=== PATIENT | male | born 1955 | race Caucasian/White ===

== ENCOUNTER 2016-09-26 18:51 | Inpatient (IN) | payer MEDICARE, MEDICAID ==
[~2016-09-26] VITALS: Ht 167.6 cm; Wt 96.2 kg
[~2016-09-26 18:51] MED LIST: ACET-868 PO; AMLO5TAB4 PO; ASPI81TA2 PO; ATOR20TA PO; CALC667C PO; CLON0.5T4 PO; CLOP75TA2 PO; DEXT1CAP3 PO; DOCU-25 PO; FAMO-131 PO; FOLI0.8T23 PO; INSU100V11 SQ; INSU100V7 SQ; ISOS60TA PO; LEVO200T; LISI40TA4 PO; METO25TA3 PO; NITR0.4T SL; OLAN2.5T3 PO; POLY17PO4 PO; ROSU40TA20 PO; SEVE800T PO
[2016-09-26 19:20] LABS: BASOPHILS # (AUTO) 0.1 /CMM (0.0-0.2); DIFF TOTAL % 100 %; EOSINOPHILS # (AUTO) 0.4 /CMM (0.0-0.7); HEMATOCRIT 33 % (39-51); HEMOGLOBIN 11.3 g/dL (13.5-17.5); LYMPHOCYTES # (AUTO) 2.4 /CMM (0.8-4.8); LYMPHOCYTES % (AUTO) 29.4 % (20.0-44.0); MEAN CORPUSCULAR HEMOGLOBIN 36 PG (26.0-33.0); MEAN CORPUSCULAR HGB CONC 34 g/dl (31.0-36.0); MEAN CORPUSCULAR VOLUME 105 fL (80-96); MONOCYTES # (AUTO) 0.8 /CMM (0.1-1.30); MONOCYTES % (AUTO) 9.9 % (2.0-12.0); NEUTROPHILS # (AUTO) 4.6 /CMM (1.8-8.9); NEUTROPHILS % (AUTO) 54.7 % (43.0-81.0); PLATELET COUNT (AUTO) 208 /CMM (150-450); RED BLOOD CELL COUNT(AUTO) 3.18 MIL/uL (4.5-6.0); WHITE BLOOD COUNT (AUTO) 8.3 K/uL (4.3-11.0)
[2016-09-26 19:34] LABS: CALCIUM, SERUM 10.3 mg/dL (8.5-10.1); POTASSIUM 4.5 mmol/L (3.5-5.1)
[2016-09-26 19:38] LABS: CREATININE 8.3 mg/dL (0.6-1.3); INR 1.02 (0.87-1.13); PROTHROMBIN TIME 10.7 SECS (9.5-12.7)
[2016-09-26 19:43] LABS: TROPONIN I 0.023 ng/mL (0.00-0.056)
[2016-09-26] MEDS ORDERED: ASPIRIN 81 MG TAB.CHEW PO ONE (20:00)
[2016-09-26] MEDS ORDERED: NITROGLYCERIN PACKET 1 GM PACKET TOP ONE (20:00)
[2016-09-26] MEDS ORDERED: ASPIRIN 81 MG TAB.CHEW ONE (20:10)
[2016-09-26] MEDS ORDERED: NITROGLYCERIN PACKET 1 GM PACKET ONE (20:10)
[2016-09-26 20:40] VITALS: BP 140/61
[2016-09-26] MEDS ORDERED: ACETAMINOPHEN 325 MG TABLET PO PRN (21:30)
[2016-09-26] MEDS ORDERED: clonazePAM 0.5 MG TABLET PO PRN (21:30)
[2016-09-26] MEDS ORDERED: NITROGLYCERIN 0.4 MG/TAB BOTTLE SL PRN (21:30)
[2016-09-26] MEDS ORDERED: MAGNESIUM HYDROXIDE 30 ML UDC PO PRN (22:00)
[2016-09-26] MEDS ORDERED: DEXTROSE 50%-WATER 50 ML DISP.SYRIN IV PRN (22:00)
[2016-09-26] MEDS ORDERED: HYDROCODONE/APAP 5/325MG 1 EACH TABLET PO PRN (22:00)
[2016-09-26] MEDS ORDERED: MAG HYDROX/AL HYDROX/SIMETH 30 ML UDC PO PRN (22:00)
[2016-09-26] MEDS ORDERED: ONDANSETRON HCL/PF 4 MG/2 ML VIAL IVP PRN (22:00)
[2016-09-26] MEDS ORDERED: Z GUARD REMEDY 2 OZ OINT TP PRN (22:00)
[2016-09-26] MEDS: BLOOD SUGAR DIAGNOSTIC 1 EACH STRIP IN SCH (22:09)
[2016-09-26] MEDS: INSULIN REGULAR, HUMAN 100 UNIT/ML 3 ML VIAL SQ PRN (22:11)
[2016-09-27] VITALS (9 sets, daily range): BP systolic 100–127; BP diastolic 54–72
[2016-09-27] MEDS: BLOOD SUGAR DIAGNOSTIC 1 EACH STRIP IN SCH ×4 (06:28→21:28)
[2016-09-27 06:53] LABS: BASOPHILS # (AUTO) 0.1 /CMM (0.0-0.2); BASOPHILS % (AUTO) 1.5 % (0.0-2.0); DIFF TOTAL % 100 %; EOSINOPHILS # (AUTO) 0.4 /CMM (0.0-0.7); EOSINOPHILS % (AUTO) 5.1 % (0.0-6.0); HEMATOCRIT 30 % (39-51); LYMPHOCYTES # (AUTO) 2.1 /CMM (0.8-4.8); LYMPHOCYTES % (AUTO) 30.7 % (20.0-44.0); MEAN CORPUSCULAR HEMOGLOBIN 35 PG (26.0-33.0); MEAN CORPUSCULAR HGB CONC 34 g/dl (31.0-36.0); MEAN CORPUSCULAR VOLUME 105 fL (80-96); MONOCYTES # (AUTO) 0.9 /CMM (0.1-1.30); MONOCYTES % (AUTO) 12.3 % (2.0-12.0); NEUTROPHILS # (AUTO) 3.5 /CMM (1.8-8.9); NEUTROPHILS % (AUTO) 50.4 % (43.0-81.0); PLATELET COUNT (AUTO) 172 /CMM (150-450); RED BLOOD CELL COUNT(AUTO) 2.83 MIL/uL (4.5-6.0); WHITE BLOOD COUNT (AUTO) 6.9 K/uL (4.3-11.0)
[2016-09-27 07:00] LABS: ALBUMIN 3.3 g/dL (3.4-5.0); BILIRUBIN,TOTAL 0.4 mg/dL (0.2-1.0); CALCIUM, SERUM 10.1 mg/dL (8.5-10.1); PHOSPHORUS 2.7 mg/dL (2.5-4.9); POTASSIUM 4.4 mmol/L (3.5-5.1); TOTAL PROTEIN, SERUM 6.9 g/dL (6.4-8.2)
[2016-09-27 07:03] LABS: CREATININE 8.9 mg/dL (0.6-1.3)
[2016-09-27] MEDS: POLYETHYLENE GLYCOL 3350 17 GM POWD.PACK PO SCH (08:54)
[2016-09-27] MEDS: LISINOPRIL (20MG) 20 MG TABLET PO SCH (08:55)
[2016-09-27] MEDS: METOPROLOL SUCCINATE 25 MG TAB.SR.24H PO SCH (08:56)
[2016-09-27] MEDS: SEVELAMER CARBONATE 800 MG TABLET PO SCH ×3 (08:56→17:00)
[2016-09-27] MEDS: AMLODIPINE BESYLATE 5 MG TABLET PO SCH ×2 (08:57→17:00)
[2016-09-27] MEDS: DOCUSATE SODIUM 100 MG CAPSULE PO SCH ×2 (08:57→21:28)
[2016-09-27] MEDS: VIT B CMPLX 3/FA/VIT C/BIOTIN 1 TAB TABLET PO SCH (08:57)
[2016-09-27] MEDS: ISOSORBIDE MONONITRATE (30MG) 30 MG TAB.SR.24H PO SCH (08:57)
[2016-09-27] MEDS: ASPIRIN 81 MG TAB.CHEW PO SCH (08:57)
[2016-09-27] MEDS: CLOPIDOGREL BISULFATE 75 MG TABLET PO SCH (08:57)
[2016-09-27] MEDS: FAMOTIDINE (20 MG) 20 MG TABLET PO SCH (08:58)
[2016-09-27] MEDS: LEVOTHYROXINE SODIUM 100 MCG TABLET PO SCH (08:59)
[2016-09-27] MEDS ORDERED: DEXTROMETHORPHAN HBR PO SCH (09:00)
[2016-09-27] MEDS ORDERED: QUINIDINE PO SCH (09:00)
[2016-09-27] MEDS ORDERED: INSULIN ASPART 3 UNIT SQ SCH (09:00)
[2016-09-27] MEDS: OLANZAPINE 2.5 MG TABLET PO SCH ×2 (10:34→16:59)
[2016-09-27] MEDS ORDERED: MINERAL OIL/PETROLATUM,WHITE 120 GM JAR TP PRN (12:00)
[2016-09-27] MEDS: CALCIUM ACETATE 667 MG TABLET PO SCH ×2 (12:27→16:59)
[2016-09-27] MEDS: INSULIN DETEMIR 100 UNIT/ML CARTRIDGE SQ SCH (12:32)
[2016-09-27] MEDS: INSULIN REGULAR, HUMAN 100 UNIT/ML 3 ML VIAL SQ PRN (12:33)
[2016-09-27] MEDS ORDERED: IV NS 0.9% 1,000 ML ONE (14:11)
[2016-09-27] MEDS: NEOMY SULF/BACITRAC ZN/POLY 15 GM TUBE TP SCH (14:26)
[2016-09-27] MEDS ORDERED: ATORVASTATIN 10 MG TABLET PO SCH (22:00)
[2016-09-28] MEDS: BLOOD SUGAR DIAGNOSTIC 1 EACH STRIP IN SCH (06:19)
[2016-09-28 08:00] VITALS: BP 138/73
[2016-09-28] MEDS: LEVOTHYROXINE SODIUM 100 MCG TABLET PO SCH (08:53)
[2016-09-28] MEDS: DOCUSATE SODIUM 100 MG CAPSULE PO SCH (08:53)
[2016-09-28] MEDS: ASPIRIN 81 MG TAB.CHEW PO SCH (08:53)
[2016-09-28] MEDS: POLYETHYLENE GLYCOL 3350 17 GM POWD.PACK PO SCH (08:53)
[2016-09-28] MEDS: OLANZAPINE 2.5 MG TABLET PO SCH (08:53)
[2016-09-28] MEDS: CALCIUM ACETATE 667 MG TABLET PO SCH (08:53)
[2016-09-28] MEDS: SEVELAMER CARBONATE 800 MG TABLET PO SCH (08:53)
[2016-09-28] MEDS: VIT B CMPLX 3/FA/VIT C/BIOTIN 1 TAB TABLET PO SCH (08:53)
[2016-09-28] MEDS: FAMOTIDINE (20 MG) 20 MG TABLET PO SCH (08:54)
[2016-09-28] MEDS: AMLODIPINE BESYLATE 5 MG TABLET PO SCH (08:54)
[2016-09-28] MEDS: LISINOPRIL (20MG) 20 MG TABLET PO SCH (08:54)
[2016-09-28] MEDS: CLOPIDOGREL BISULFATE 75 MG TABLET PO SCH (08:54)
[2016-09-28 08:55] VITALS: BP 142/76
[2016-09-28] MEDS: ISOSORBIDE MONONITRATE (30MG) 30 MG TAB.SR.24H PO SCH (08:55)
[2016-09-28] MEDS: METOPROLOL SUCCINATE 25 MG TAB.SR.24H PO SCH (08:55)
[2016-09-28] MEDS: NEOMY SULF/BACITRAC ZN/POLY 15 GM TUBE TP SCH (08:55)
[2016-09-28] MEDS: INSULIN DETEMIR 100 UNIT/ML CARTRIDGE SQ SCH (09:03)
== END 2016-09-28 11:25 | DRG 302 ==
LOC: ER 18:57 → TELE 20:23 → MED 09-27 14:34
PROVIDERS: ADMIT Contractor; ATTEND Contractor
PROC: 5A1D00Z (ICD-10-PCS; principal; 2016-09-27)
DX: I25.10 Atherosclerotic heart disease of native coronary artery without angina pectoris (principal); N18.6 End stage renal disease; I12.0 Hypertensive chronic kidney disease with stage 5 chronic kidney disease or end stage renal disease; E11.22 Type 2 diabetes mellitus with diabetic chronic kidney disease; Z99.2 Dependence on renal dialysis; Z95.1 Presence of aortocoronary bypass graft; D50.9 Iron deficiency anemia, unspecified; D63.1 Anemia in chronic kidney disease; E03.9 Hypothyroidism, unspecified; E78.5 Hyperlipidemia, unspecified; F03.90 Unspecified dementia, unspecified severity, without behavioral disturbance, psychotic disturbance, mood disturbance, and anxiety; I25.2 Old myocardial infarction; Z79.4 Long term (current) use of insulin; Z95.0 Presence of cardiac pacemaker; M79.89 Other specified soft tissue disorders
CPT/HCPCS: 36415; 71010-TC; 80048-TC; 80053-TC; 80061-TC; 82746; 82962-TC; 83735-TC; 84100-TC; 84443-TC; 84484-TC; 85025-TC; 85730-TC; 87081-TC; 90935-TC; 93971-TC; A4606; A6402; A6403; J1815; J7030; Z7610

== ENCOUNTER 2017-08-04 13:02 | Emergency (ER) | payer MEDICARE, OTHER ==
[~2017-08-04] VITALS: Ht 167.6 cm; Wt 82.1 kg
[~2017-08-04 13:02] MED LIST changes: +ASPI-1238 PO; -ASPI81TA2 PO; +CLOP75TA15 PO; -CLOP75TA2 PO; +DOCU-141 PO; -DOCU-25 PO; -SEVE800T PO; +SEVE800T7 PO
[2017-08-04] MEDS ORDERED: EPINEPHRINE (1:10,000) SYRINGE 1 MG/10 ML DISP.SYRIN IVP ONE (13:04)
[2017-08-04] MEDS ORDERED: CALCIUM CHLORIDE 1,000 MG/10 ML DISP.SYRIN IV ONE (13:04)
--- NOTE | 2017-08-04 13:30 | NUR ---
Code BLUE called; cardiopulomonary compression initiated at bedside
--- NOTE | 2017-08-04 13:31 | NUR ---
Dr. Shaver at bedside
--- NOTE | 2017-08-04 13:36 | NUR ---
DR Carmel REZA AT BEDSIDE. PT INTUBATED W/ ET # 7.5 24 TO THE LIP, PLACEMENT VERIFIED.
[2017-08-04] MEDS ORDERED: MIDAZOLAM 50 MG/10 ML VIAL ONE (13:43)
--- NOTE | 2017-08-04 13:45 | NUR ---
PT IS BUCKING ON THE TUBE. VERSED 2MG GIVEN PER ERMD VERBAL ORDER.
--- NOTE | 2017-08-04 13:45 | NUR ---
BLOOD SUGAR 195. ERMD AWARE.
--- NOTE | 2017-08-04 13:50 | NUR ---
PT IS STILL BUCKING THE TUBE. VERBAL ORDER FOR VERSED 3MG IVP GIVEN.
[2017-08-04] MEDS ORDERED: PROPOFOL 100 ML ONE (13:51)
--- NOTE | 2017-08-04 13:59 | NUR ---
[facility] CALLED [phone]. EKG/FACESHEET FAXED [phone]
--- NOTE | 2017-08-04 13:59 | NUR ---
CARDIO PAGED [facility] [phone]
[2017-08-04 14:09] LABS: ABG BASE EXCESS 0.2 mmol/L; ABG OXYGEN SATURATION 99.5 % (92.0-98.5); ABG PCO2 35.4 mmHg (35.0-45.0); ABG PH 7.447 (7.350-7.450); ABG PO2 369.8 mmHg (75.0-100.0); AaDO2 307.8 mmHg; COHb 1.2 % (0.5-1.5); MetHb 0.3 % (0.0-1.5); SITE, ABG Right Radial
--- NOTE | 2017-08-04 14:10 | NUR ---
RADIOLOGY AT BEDSIDE FOR CHEST XRAY.
[2017-08-04 14:15] LABS: BASOPHILS # (AUTO) 0.4 /CMM (0.0-0.2); BASOPHILS % (AUTO) 2.3 % (0.0-2.0); EOSINOPHILS % (AUTO) 0.1 % (0.0-6.0); HEMATOCRIT 33 % (39-51); HEMOGLOBIN 11.3 g/dL (13.5-17.5); LYMPHOCYTES # (AUTO) 1.3 /CMM (0.8-4.8); LYMPHOCYTES % (AUTO) 7.3 % (20.0-44.0); MEAN CORPUSCULAR HEMOGLOBIN 35 PG (26.0-33.0); MEAN CORPUSCULAR HGB CONC 34 g/dl (31.0-36.0); MEAN CORPUSCULAR VOLUME 103 fL (80-96); MONOCYTES # (AUTO) 1.3 /CMM (0.1-1.30); MONOCYTES % (AUTO) 7.1 % (2.0-12.0); NEUTROPHILS # (AUTO) 15.2 /CMM (1.8-8.9); NEUTROPHILS % (AUTO) 83.2 % (43.0-81.0); PLATELET COUNT (AUTO) 175 /CMM (150-450); RDW COEFFICIENT OF VARIATION 14.8 (11.5-15.0); RED BLOOD CELL COUNT(AUTO) 3.23 MIL/uL (4.5-6.0); WHITE BLOOD COUNT (AUTO) 18.2 K/uL (4.3-11.0)
[2017-08-04] MEDS ORDERED: HEPARIN SODIUM, PORCINE 5000 UNITS/1 ML VIAL ONE (14:21)
[2017-08-04 14:26] LABS: CALCIUM, SERUM 10.6 mg/dL (8.5-10.1); CREATININE 5.5 mg/dL (0.6-1.3); POTASSIUM 3.5 mmol/L (3.5-5.1)
[2017-08-04 14:28] LABS: INR 1.16 (0.87-1.13); PROTHROMBIN TIME 12.1 SECS (9.5-12.7)
[2017-08-04] MEDS ORDERED: ASPIRIN 300 MG/SUPP.RECT RC ONE (14:30)
[2017-08-04] MEDS ORDERED: HEPARIN INFUSION/D5W 500 ML IV ONE ×2 (14:30→14:51)
[2017-08-04] MEDS ORDERED: HEPARIN SODIUM, PORCINE 5000 UNITS/1 ML VIAL IV ONE (14:30)
--- NOTE | 2017-08-04 14:30 | NUR ---
VERBAL ORDER FOR HEPARIN 5,000 UNITS BOLUS GIVEN IVP PER DR GIBBS VERBAL ORDER. DOSE WITNESSED BY CHARGE NURSE
[2017-08-04 14:37] LABS: ALBUMIN 3.8 g/dL (3.4-5.0); BILIRUBIN,DIRECT 0.2 mg/dL (0.0-0.2); BILIRUBIN,TOTAL 1.3 mg/dL (0.2-1.0); TOTAL PROTEIN, SERUM 7.3 g/dL (6.4-8.2)
[2017-08-04 14:42] LABS: TROPONIN I 0.065 ng/mL (0.00-0.056)
[2017-08-04 14:47] VITALS: BP 105/63
--- NOTE | 2017-08-04 14:55 | NUR ---
HEPARIN DRIP INFUSING AT 12UNITS/KG/HR ON ROUTE TO [facility]. TRANSFERED VIA ACLS PROTOCOL.
--- NOTE | 2017-08-04 15:19 | NUR ---
REPORT GIVEN AT [facility].
== END 2017-08-04 15:30 | disposition short-term general hospital (02) ==
LOC: ER 13:03
DX: I46.9 Cardiac arrest, cause unspecified (principal); I21.29 ST elevation (STEMI) myocardial infarction involving other sites; I12.0 Hypertensive chronic kidney disease with stage 5 chronic kidney disease or end stage renal disease; E11.22 Type 2 diabetes mellitus with diabetic chronic kidney disease; N18.6 End stage renal disease; E03.9 Hypothyroidism, unspecified; F29 Unspecified psychosis not due to a substance or known physiological condition; Z95.1 Presence of aortocoronary bypass graft; Z88.8 Allergy status to other drugs, medicaments and biological substances; Z79.4 Long term (current) use of insulin; Z79.82 Long term (current) use of aspirin
CPT/HCPCS: 31500; 36415; 36600; 71045; 80048; 80076; 84484; 85025; 85730; 92950; 93005; 96365; 99291; A4606; J0171; J1644 ×2; J2250; J3490 ×2; Z7610

== ENCOUNTER 2017-08-25 12:56 | Inpatient (IN) | payer MEDICARE, OTHER ==
[2017-08-25] VITALS (17 sets, daily range): BP systolic 79–117; BP diastolic 39–77
[~2017-08-25] VITALS: Ht 172.7 cm; Wt 77.6 kg
[~2017-08-25 12:56] MED LIST changes: +ACET-868 GT; -ACET-868 PO; +ASPI-1238 GT; -ASPI-1238 PO; +ATOR20TA GT; -ATOR20TA PO; +CLOP75TA15 GT; -CLOP75TA15 PO; +FOLI0.8T23 GT; -FOLI0.8T23 PO; +ISOS60TA GT; -ISOS60TA PO; +OLAN2.5T3 GT; -OLAN2.5T3 PO
[2017-08-25 13:20] LABS: BASOPHILS # (AUTO) 0.6 /CMM (0.0-0.2); BASOPHILS % (AUTO) 3.9 % (0.0-2.0); EOSINOPHILS # (AUTO) 0.1 /CMM (0.0-0.7); EOSINOPHILS % (AUTO) 0.8 % (0.0-6.0); HEMATOCRIT 33 % (39-51); HEMOGLOBIN 11.1 g/dL (13.5-17.5); LYMPHOCYTES % (AUTO) 12.5 % (20.0-44.0); MEAN CORPUSCULAR HEMOGLOBIN 34 PG (26.0-33.0); MEAN CORPUSCULAR HGB CONC 34 g/dl (31.0-36.0); MEAN CORPUSCULAR VOLUME 100 fL (80-96); MONOCYTES # (AUTO) 1.9 /CMM (0.1-1.30); MONOCYTES % (AUTO) 11.6 % (2.0-12.0); NEUTROPHILS # (AUTO) 11.4 /CMM (1.8-8.9); NEUTROPHILS % (AUTO) 71.2 % (43.0-81.0); PLATELET COUNT (AUTO) 345 /CMM (150-450); RDW COEFFICIENT OF VARIATION 15.3 (11.5-15.0); RED BLOOD CELL COUNT(AUTO) 3.29 MIL/uL (4.5-6.0)
[2017-08-25] MEDS ORDERED: IV NS 0.9% 1,000 ML BAG IV ONE (13:30)
[2017-08-25 13:35] LABS: INR 1.13 (0.85-1.15)
[2017-08-25 13:40] LABS: ALBUMIN 4.5 g/dL (3.4-5.0); BILIRUBIN,DIRECT 0.2 mg/dL (0.0-0.2); BILIRUBIN,TOTAL 0.6 mg/dL (0.2-1.0); CALCIUM, SERUM 10.6 mg/dL (8.5-10.1); POTASSIUM 4.8 mmol/L (3.5-5.1); TOTAL PROTEIN, SERUM 8.8 g/dL (6.4-8.2); TROPONIN I 0.104 ng/mL (0.00-0.056)
[2017-08-25 13:41] LABS: CREATININE 10.2 mg/dL (0.6-1.3)
--- NOTE | 2017-08-25 13:48 | NUR ---
CARDIOLOGY ON-CALL PAGED
--- NOTE | 2017-08-25 13:51 | NUR ---
PANEL ON-CALL PAGED
[2017-08-25] MEDS ORDERED: VANCOMYCIN 1 GM in IV D5W 250 ML IV ONE (14:00)
[2017-08-25] MEDS ORDERED: PIPERACILLIN /TAZOBACTAM 3.375 G in IV D5W 50 ML IV ONE (14:00)
--- NOTE | 2017-08-25 14:09 | NUR ---
DR MCKEON PAGED TO FIND OUT IF IT'S OK TO PUT A PICC LINE
[2017-08-25] MEDS: IV NS 0.9% 1,000 ML IV PRN (14:43)
[2017-08-25 14:45] LABS: MAGNESIUM 2.7 mg/dL (1.8-2.4); PHOSPHORUS 7.4 mg/dL (2.5-4.9)
--- NOTE | 2017-08-25 14:56 | NUR ---
CALL BACK FROM DR Marisa MCKEON, GAVE THE OK TO PUT A PICC LINE TO R ARM,OPPOSITE THE DIALYSIS ACCESS SITE
[2017-08-25 15:21] LABS: THYROID STIMULATING HORMONE 4.385 uIU/mL (0.358-3.74)
--- NOTE | 2017-08-25 15:31 | NUR ---
BED 254
--- NOTE | 2017-08-25 15:36 | NUR ---
DR. ANGELICA BERNAL.
[2017-08-25] MEDS ORDERED: BLOO-668 IN (15:53)
[2017-08-25] MEDS ORDERED: HYDR-552 GT (15:53)
[2017-08-25] MEDS ORDERED: INSU100V27 SQ (15:53)
[2017-08-25] MEDS ORDERED: DONE5TAB7 GT (15:53)
[2017-08-25] MEDS ORDERED: METO25TA3 GT (15:53)
[2017-08-25] MEDS ORDERED: BISA10SU8 RC (15:53)
[2017-08-25] MEDS ORDERED: ISOS10TA2 GT (15:53)
[2017-08-25] MEDS ORDERED: CYAN10006 IM (15:53)
[2017-08-25] MEDS ORDERED: LEVO500T75 GT (15:53)
[2017-08-25] MEDS ORDERED: EPOE3000 SQ (15:53)
[2017-08-25] MEDS ORDERED: METO25TA6 GT (15:53)
[2017-08-25] MEDS ORDERED: NUT.237L67 GT (15:53)
[2017-08-25] MEDS ORDERED: LEVO75TA7 GT (15:53)
[2017-08-25] MEDS ORDERED: NA P133E RC (15:53)
[2017-08-25] MEDS ORDERED: SEVE0.8P GT (15:53)
[2017-08-25] MEDS ORDERED: CHOL100044 GT (15:53)
[2017-08-25] MEDS ORDERED: ACET-2605 GT (15:53)
[2017-08-25] MEDS ORDERED: MAGN400O6 GT (15:53)
[2017-08-25] MEDS ORDERED: HYDR-4076 GT (15:53)
[2017-08-25] MEDS ORDERED: FOLI1TAB16 GT (15:53)
--- NOTE | 2017-08-25 16:40 | NUR ---
RN NOTES ADMITTED 61 Y/O M FROM ER TRANSPORTED VIA STRETCHER ACCOMPANIED BY RN AND TECH. PT APPEARS DROWSY, UNABLE TO COMPLETE INTERVIEW PROCESS. ON O2@2LP VIA NC, NAD. BODY CHECK DONE, NOTED SACRAL WOUND, AND SCROTAL REDNESS. PHOTO TAKEN AND FILED ON CHART. WOUND CONSULT ORDERED, KCI MATTRESS ORDERED. KEPT COMFORTABLE. WILL CLOSELY MONITOR.
[2017-08-25] MEDS ORDERED: CHOLECALCIFEROL 1,000 UNIT TABLET (VIT D3) GT SCH (18:30)
[2017-08-25] MEDS ORDERED: DEXTROSE 50%-WATER 50 ML DISP.SYRIN IV PRN (18:30)
--- NOTE | 2017-08-25 19:30 | NUR ---
ICU/RN RECEIVED PT AWAKE ORIENTED TO NAME,SPEECH AT TIMES GARBLED,AT TIMES CLEAR.. PT EASILY DOZES TO SLEEP.DOES NOT FOLLPW COMMANDS.
[2017-08-25] MEDS: RENAL NOVASOURCE 1,000 ML BOTTLE GT PRN (19:34)
[2017-08-25] MEDS ORDERED: FEE PK DOSING 1 MIN EA MC ONE (20:34)
[2017-08-25] MEDS: HYDROGEL DRESSING 90 GM TUBE TP SCH (21:35)
[2017-08-25] MEDS: PIPERACILLIN /TAZOBACTAM 2.25 G in IV D5W 50 ML IV SCH (21:35)
[2017-08-25] MEDS: Z GUARD REMEDY 2 OZ OINT TP SCH (21:35)
[2017-08-25] MEDS: IV NS 0.9% 250 ML BAG IV PRN (21:47)
[2017-08-25] MEDS: DONEPEZIL 5 MG TABLET GT SCH (22:06)
[2017-08-26] VITALS (59 sets, daily range): BP systolic 52–139; BP diastolic 20–102
[2017-08-26] MEDS: BLOOD SUGAR DIAGNOSTIC 1 EACH STRIP IN SCH ×5 (00:39→23:45)
[2017-08-26] MEDS: INSULIN REGULAR, HUMAN 100 UNIT/ML 3 ML VIAL SQ PRN ×5 (00:42→23:46)
[2017-08-26 05:24] LABS: BASOPHILS # (AUTO) 0.1 /CMM (0.0-0.2); BASOPHILS % (AUTO) 0.7 % (0.0-2.0); EOSINOPHILS # (AUTO) 0.1 /CMM (0.0-0.7); EOSINOPHILS % (AUTO) 1.3 % (0.0-6.0); HEMATOCRIT 32 % (39-51); HEMOGLOBIN 10.7 g/dL (13.5-17.5); LYMPHOCYTES # (AUTO) 1.6 /CMM (0.8-4.8); LYMPHOCYTES % (AUTO) 13.2 % (20.0-44.0); MEAN CORPUSCULAR HEMOGLOBIN 35 PG (26.0-33.0); MEAN CORPUSCULAR HGB CONC 34 g/dl (31.0-36.0); MEAN CORPUSCULAR VOLUME 103 fL (80-96); MONOCYTES # (AUTO) 1.1 /CMM (0.1-1.30); MONOCYTES % (AUTO) 9.2 % (2.0-12.0); NEUTROPHILS # (AUTO) 8.9 /CMM (1.8-8.9); NEUTROPHILS % (AUTO) 75.6 % (43.0-81.0); PLATELET COUNT (AUTO) 293 /CMM (150-450); RDW COEFFICIENT OF VARIATION 16.5 (11.5-15.0); RED BLOOD CELL COUNT(AUTO) 3.07 MIL/uL (4.5-6.0); WHITE BLOOD COUNT (AUTO) 11.7 K/uL (4.3-11.0)
[2017-08-26 05:39] LABS: CALCIUM, SERUM 10.6 mg/dL (8.5-10.1); POTASSIUM 5.2 mmol/L (3.5-5.1)
[2017-08-26] MEDS: PIPERACILLIN /TAZOBACTAM 2.25 G in IV D5W 50 ML IV SCH ×3 (05:40→21:29)
[2017-08-26 05:41] LABS: CREATININE 10.7 mg/dL (0.6-1.3)
--- NOTE | 2017-08-26 06:35 | NUR ---
ICU/RN PT AWAKE ALERT ORIENTED TO NAME AND PLACE,RE-ORIENTED TO TIME AND SURROUNDINGS.SPEECH CLEAR AT TIMES,GARBLED AT TIME.VS STABLE PT W/ CHEST BINDER SINCE ADMISSION.TOLLERATING TF WELL.
--- NOTE | 2017-08-26 07:05 | NUR ---
RN INITIAL NOTES RECEIVED PT AWAKE, A/OX1. ON 02 AT 2LPM VIA NC. NO RESPIRATORY DISTRESS NOTED. NO SOB NOTED. NO SIGNS OF PAIN NOTED. HOB ELEVATED. HERMAN PICC IN PLACE. JUANITO AV FISTULA NOTED. BRUIT AND THRILL PRESENT. GT IN PLACE. TOLERATING GTF WELL. BLE ELEVATED. PT COMFORTABLE. WILL CONTINUE TO MONITOR.
--- NOTE | 2017-08-26 07:40 | NUR ---
RN NOTES SEEN AND EXAMINED BY DR. CANTOR. AWARE OF CURRENT LAB VALUES: WBC 11.7, HGB 10.7, HCT 32, PLATELET 293, BUN 160, CREA 10.7. ALSO AWARE OF CXR RESULT. WILL OBTAIN RECORDS FROM [facility].
[2017-08-26] MEDS: LEVOTHYROXINE SODIUM 75 MCG TABLET GT SCH (08:25)
[2017-08-26] MEDS: HYDROGEL DRESSING 90 GM TUBE TP SCH ×2 (08:25→21:31)
[2017-08-26] MEDS: Z GUARD REMEDY 2 OZ OINT TP SCH ×2 (08:25→21:31)
[2017-08-26] MEDS: CLOPIDOGREL BISULFATE 75 MG TABLET GT SCH (08:25)
[2017-08-26] MEDS: SEVELAMER CARBONATE 0.8 GM POWD.PACK GT SCH ×3 (08:25→17:21)
[2017-08-26] MEDS: FOLIC ACID 1 MG TABLET GT SCH (08:25)
[2017-08-26] MEDS: ASPIRIN 81 MG TAB.CHEW GT SCH (08:25)
--- NOTE | 2017-08-26 09:45 | NUR ---
RN NOTES DIALYSIS STARTED. VITAL SIGNS WNL. NO RESPIRATORY DISTRESS NOTED. NO SIGNS OF PAIN NOTED. WILL MONITOR.
--- NOTE | 2017-08-26 10:10 | NUR ---
RN NOTES CALLED ERICA CALHOUN. PT HAVING HD AND SBP ON LOW 50-60S. ALBUMIN GIVEN BY HD NURSE. ORDERED LEVOPHED. NOTED AND CARRIED OUT. WILL CLOSELY MONITOR.
[2017-08-26] MEDS ORDERED: ALBUMIN 25% 25 GM in PREMIX 1 EA IV PRN (10:30)
--- NOTE | 2017-08-26 11:00 | NUR ---
RN NOTES SEEN AND EXAMINED BY DR. BERTHA ZUNIGA. HD ONGOING. LEVO STARTED. WILL TITRATE ACCORDINGLY. SBP CLOSELY MONITORED, ON 60S. WILL CONTINUE TO MONITOR
[2017-08-26] MEDS: NOREPINEPHRINE 16 MG in IV D5W 500 ML IV PRN (11:18)
--- NOTE | 2017-08-26 11:45 | NUR ---
RN NOTES HD DONE. REMOVED 1.3L. PT GIVEN ALBUMIN DURING HD. PT ON LEVO, WILL TITRATE ACCORDINGLY. LATEST SBP 120S. WILL CLOSELY MONITOR.
[2017-08-26] MEDS: VANCOMYCIN 500 MG in IV D5W 100 ML IV PRN (15:33)
[2017-08-26] MEDS: IV NS 0.9% 250 ML BAG IV PRN (16:29)
[2017-08-26] MEDS: RENAL NOVASOURCE 1,000 ML BOTTLE GT PRN (16:29)
--- NOTE | 2017-08-26 18:55 | NUR ---
RN CLOSING NOTES NO SIGNIFICANT CHANGE NOTED. PT REMAINS ON 02 AT 2LPM VIA NC. NO RESPIRATORY DISTRESS NOTED. GT IN PLACE. TOLERATING GTF WELL. HERMAN PICC IN PLACE. KEPT CLEAN AND DRY. REPOSITIONED Q2. TX PROVIDED ORDERED. BLE ELEVATED. WILL ENDORSE FOR CONTINUITY OF CARE.
[2017-08-26] MEDS: ATORVASTATIN 10 MG TABLET GT SCH (21:31)
[2017-08-26] MEDS: DONEPEZIL 5 MG TABLET GT SCH (21:32)
[2017-08-26] MEDS: VITAMIN B COMP W-C 1 TAB TABLET GT SCH (21:32)
--- NOTE | 2017-08-26 23:20 | NUR ---
ICU/ASSISTANT PROFESSOR OF SPANISH BLOOD SUGAR WAS 186, THIS WAS COVERED WITH 3 UNITS REGULAR INSULIN. WILL CONTINUE TO MONITOR PT'S SUGAR PER MD ORDERS AND PROTOCOL. PT WAS TURNED AND REPOSITIONED FOR COMFORT AND CARE. PT ON OCCASION YELLS OUT WHEN ASKED ABOUT THIS PT STATES " I DON'T KNOW WHY."
[2017-08-27] VITALS (60 sets, daily range): BP systolic 70–204; BP diastolic 49–145
--- NOTE | 2017-08-27 02:10 | NUR ---
ICU/SUPERVISOR PRESSING DEPARTMENT PT WAS GIVEN AM CARE, ALONG WITH ORAL CARE. PT TOLERATED THIS WELL. PT REMAINS ON 3 LITERS VIA N/C WITH SATURATION AT 96-98%. PT WAS THEN TURNED AND REPOSITIONED FOR COMFORT AND CARE. NO ACUTE DISTRESS SEEN AT THIS TIME.
[2017-08-27] MEDS: PIPERACILLIN /TAZOBACTAM 2.25 G in IV D5W 50 ML IV SCH ×3 (04:34→21:11)
--- NOTE | 2017-08-27 04:40 | NUR ---
ICU/PRESSURE TEST OPERATOR AM LABS WERE DRAWN, AWAIT FOR ANY CRITICAL LAB VALUES. PT WAS TURNED AND REPOSITIONED FOR COMFORT AND CARE.
[2017-08-27 05:01] LABS: BASOPHILS # (AUTO) 0.1 /CMM (0.0-0.2); BASOPHILS % (AUTO) 0.8 % (0.0-2.0); EOSINOPHILS # (AUTO) 0.3 /CMM (0.0-0.7); EOSINOPHILS % (AUTO) 2.9 % (0.0-6.0); HEMATOCRIT 31 % (39-51); HEMOGLOBIN 10.4 g/dL (13.5-17.5); LYMPHOCYTES # (AUTO) 1.1 /CMM (0.8-4.8); LYMPHOCYTES % (AUTO) 11.5 % (20.0-44.0); MEAN CORPUSCULAR HEMOGLOBIN 35 PG (26.0-33.0); MEAN CORPUSCULAR HGB CONC 34 g/dl (31.0-36.0); MEAN CORPUSCULAR VOLUME 103 fL (80-96); MONOCYTES # (AUTO) 0.9 /CMM (0.1-1.30); MONOCYTES % (AUTO) 9.6 % (2.0-12.0); NEUTROPHILS # (AUTO) 7.2 /CMM (1.8-8.9); NEUTROPHILS % (AUTO) 75.2 % (43.0-81.0); PLATELET COUNT (AUTO) 215 /CMM (150-450); RDW COEFFICIENT OF VARIATION 16.2 (11.5-15.0); RED BLOOD CELL COUNT(AUTO) 2.97 MIL/uL (4.5-6.0); WHITE BLOOD COUNT (AUTO) 9.6 K/uL (4.3-11.0)
[2017-08-27 05:10] LABS: CALCIUM, SERUM 10.6 mg/dL (8.5-10.1); MAGNESIUM 2.8 mg/dL (1.8-2.4); PHOSPHORUS 5.4 mg/dL (2.5-4.9); POTASSIUM 4.4 mmol/L (3.5-5.1)
[2017-08-27] MEDS: BLOOD SUGAR DIAGNOSTIC 1 EACH STRIP IN SCH ×3 (05:12→18:14)
[2017-08-27] MEDS: INSULIN REGULAR, HUMAN 100 UNIT/ML 3 ML VIAL SQ PRN (05:15)
[2017-08-27 05:19] LABS: CREATININE 8.3 mg/dL (0.6-1.3)
--- NOTE | 2017-08-27 06:10 | NUR ---
ICU/BRACE MAKER BLOOD SUGAR WAS 193, THIS WAS COVERED WITH 3 UNITS REGULAR INSULIN. WILL CONTINUE TO MONITOR PT'S SUGAR PER MD ORDERS AND PROTOCOL. PT WAS TURNED AND REPOSITIONED FOR COMFORT AND CARE. PT IS TOLERATING CURRENT G/TUBE FEEDING, THERE IS NO RESIDUALS.
--- NOTE | 2017-08-27 06:38 | NUR ---
ICU/CORRECTIONS UNIT SUPERVISOR CAME IN TO SEE PT, NO NEW ORDERED WERE RECEIVED AT THIS TIME. PT WILL CONTINUE TO BE MONITOR.
--- NOTE | 2017-08-27 07:05 | NUR ---
RN INITIAL NOTES RECEIVED PT AWAKE, A/OX1, MUMBLE WORDS. ON 02 AT 2LPM VIA NC. NO RESPIRATORY DISTRESS NOTED. NO SOB NOTED. HOB ELEVATED. NO SIGNS OF PAIN NOTED. HOB ELEVATED. HERMAN PICC IN PLACE. JUANITO AV FISTULA NOTED. BRUIT AND THRILL PRESENT. GT IN PLACE. TOLERATING GTF WELL. BLE ELEVATED. PT COMFORTABLE. WILL CONTINUE TO MONITOR.
[2017-08-27] MEDS: SEVELAMER CARBONATE 0.8 GM POWD.PACK GT SCH ×3 (08:05→16:30)
[2017-08-27] MEDS: FOLIC ACID 1 MG TABLET GT SCH (08:05)
[2017-08-27] MEDS: Z GUARD REMEDY 2 OZ OINT TP SCH ×2 (08:05→21:11)
[2017-08-27] MEDS: CLOPIDOGREL BISULFATE 75 MG TABLET GT SCH (08:05)
[2017-08-27] MEDS: ASPIRIN 81 MG TAB.CHEW GT SCH (08:05)
[2017-08-27] MEDS: HYDROGEL DRESSING 90 GM TUBE TP SCH ×2 (08:05→21:11)
[2017-08-27] MEDS: LEVOTHYROXINE SODIUM 75 MCG TABLET GT SCH (08:05)
--- NOTE | 2017-08-27 10:00 | NUR ---
RN NOTES SEEN AND EXAMINED BY DR. ZUNIGA. AWARE OF CURRENT LAB VALUES. ORDERED HD TODAY AND LABS IN AM. NOTED AND CARRIED OUT.
--- NOTE | 2017-08-27 10:30 | NUR ---
RN NOTES SEEN AND EXAMINED BY DR. RODGERS. PT ON 02 AT 2LPM VIA NC. NO RESPIRATORY DISTRESS NOTED. NO SOB NOTED. AWARE OF CURRENT LAB VALUES AND CXR RESULT. WILL MONITOR.
--- NOTE | 2017-08-27 11:00 | NUR ---
RN NOTES DIALYSIS STARTED. PT AWAKE. A/OX1. NO RESPIRATORY DISTRESS NOTED. NO SIGNS OF PAIN NOTED. WILL CLOSELY MONITOR. Addendum: 08/27/17 at 1152 by LEAH CASEY RN [id number] LEVO STARTED FOR BP SUPPORT. BP 84/54 WHILE DOING HD. WILL CLOSELY MONITOR. WILL TITRATE ACCORDINGLY.
[2017-08-27] MEDS: NOREPINEPHRINE 16 MG in IV D5W 500 ML IV PRN (11:39)
--- NOTE | 2017-08-27 12:30 | NUR ---
RN NOTES PT VOMITED, SCANT IN AMOUNT. KEPT HOB ELEVATED. NO RESPIRATORY DISTRESS NOTED. ERICA CALHOUN NP NOTIFIED AND ORDERED ZOFRAN. GTF ON HOLD. WILL CONTINUE TO MONITOR.
--- NOTE | 2017-08-27 12:30 | NUR ---
RN NOTES DIALYSIS STARTED. NO FLUID REMOVED. PT ON LEVO. WILL TITRATE ACCORDINGLY. WILL MONITOR.
[2017-08-27] MEDS: ONDANSETRON HCL/PF 4 MG/2 ML VIAL IV PRN (12:36)
--- NOTE | 2017-08-27 14:00 | NUR ---
RN NOTES SEEN AND EXAMINED BY ERICA CALHOUN NP. AWARE OF CURRENT LAB VALUES. HD DONE. NO FLUID REMOVED. HOB ELEVATED. NO RESPIRATORY DISTRESS NOTED. GTF STILL ON HOLD. NO ABDOMINAL DISTENTION NOTED. WILL CHECK FOR RESIDUAL PRIOR RESTARTING. WILL MONITOR.
[2017-08-27] MEDS: RENAL NOVASOURCE 1,000 ML BOTTLE GT PRN (16:30)
--- NOTE | 2017-08-27 17:41 | NUR ---
RN NOTES PT NOTED WITH PROJECTILE VOMITING, BROWNISH IN COLOR. GTF OFF, CONNECTED TO LOW INTERMITTENT SUCTION. OBTAINED AT LEAST 600ML. ERICA CALHOUN NP NOTIFIED. KUB DONE. AWAITING FOR RESULT. PER COMMODITY INDUSTRY ANALYST, WILL PUT ON NPO AND WILL DO CT ABDOMEN WITH CONTRAST. WILL CLOSELY MONITOR.
--- NOTE | 2017-08-27 18:44 | NUR ---
RN CLOSING NOTES PT AWAKE, MUMBLES WORDS. NO RESPIRATORY DISTRESS NOTED. HOB ELEVATED. NO SIGNS OF PAIN NOTED. PICC LINE IN PLACE. KEPT CLEAN AND DRY. KEPT COMFORTABLE. TX PROVIDED ORDERED. REPOSITIONED Q2. AWAITING FOR KUB WITH CONTRAST, BLE ELEVATED. WILL ENDORSE FOR CONTINUITY OF CARE.
[2017-08-27] MEDS ORDERED: DIATR MEGLU/DIATRIZOATE SODIUM 30 ML BOTTLE (GASTROGRAPHIN) ONE (18:48)
--- NOTE | 2017-08-27 19:30 | NUR ---
VICE PRESIDENT RESEARCH INITIAL NOTES RECEIVED PATIENT AWAKE, RESPONSIVE TO NAME, ABLE TO ANSWER YES OR NO QUESTIONS. DENIES PAIN OR DISCOMFORT. DENIES SOB. DENIES N/V. RESPIRATIONS EVEN AND UNLABORED, ON 3LPMO2 VIA NC. SKIN WARM AND DRY TO TOUCH. ON TELE MONITOR SR WITH BBB, OCC VPACING 70. HERMAN PICC LINE PATENT AND INTACT, TKO. JUANITO AV FISTULA POSITIVE BRUIT AND THRILL, PRESSURE DRESSING IN PLACE, DRY AND INTACT. GT CLAMPED. GT PATENT AND INTACT, IN PLACE. PER REPORT PATIENT CURRENTLY NPO DUE TO EMESIS EARLIER ON. PENDING STAT KUB RESULT. HOB ELEVATED. SIDE RAILS UP AND LOCKED. BED KEPT AT LOWEST POSITION. CALL LIGHT KEPT WITHIN EASY REACH. WILL CONTINUE TO MONITOR.
--- NOTE | 2017-08-27 20:52 | NUR ---
RELAYED STAT KUB RESULT TO ERICA, WITH ORDERS FOR LOW INTERMITTENT SUCTION TIL MORNING WHEN SHE SEES THE PATIENT. WILL CONTINUE TO MONITOR.
--- NOTE | 2017-08-27 21:10 | NUR ---
PLACED PATIENT ON LOW INTERMITTENT SUCTION. OUTPUT LIGHT BROWN IN COLOR, MINIMAL. WILL CONTINUE TO MONITOR.
[2017-08-27] MEDS: DONEPEZIL 5 MG TABLET GT SCH (21:11)
[2017-08-27] MEDS: VITAMIN B COMP W-C 1 TAB TABLET GT SCH (21:11)
[2017-08-27] MEDS: ATORVASTATIN 10 MG TABLET GT SCH (21:11)
[2017-08-28] VITALS (27 sets, daily range): BP systolic 85–143; BP diastolic 52–81
[2017-08-28] MEDS: BLOOD SUGAR DIAGNOSTIC 1 EACH STRIP IN SCH ×4 (00:44→17:04)
[2017-08-28] MEDS: PIPERACILLIN /TAZOBACTAM 2.25 G in IV D5W 50 ML IV SCH ×3 (05:04→21:13)
[2017-08-28 05:16] LABS: BASOPHILS # (AUTO) 0.1 /CMM (0.0-0.2); BASOPHILS % (AUTO) 0.7 % (0.0-2.0); EOSINOPHILS # (AUTO) 0.3 /CMM (0.0-0.7); EOSINOPHILS % (AUTO) 1.7 % (0.0-6.0); HEMATOCRIT 31 % (39-51); HEMOGLOBIN 10.2 g/dL (13.5-17.5); LYMPHOCYTES # (AUTO) 1.2 /CMM (0.8-4.8); MEAN CORPUSCULAR HEMOGLOBIN 34 PG (26.0-33.0); MEAN CORPUSCULAR HGB CONC 33 g/dl (31.0-36.0); MEAN CORPUSCULAR VOLUME 103 fL (80-96); MONOCYTES % (AUTO) 5.8 % (2.0-12.0); NEUTROPHILS # (AUTO) 14.5 /CMM (1.8-8.9); NEUTROPHILS % (AUTO) 84.8 % (43.0-81.0); PLATELET COUNT (AUTO) 185 /CMM (150-450); RDW COEFFICIENT OF VARIATION 16.4 (11.5-15.0); WHITE BLOOD COUNT (AUTO) 17.1 K/uL (4.3-11.0)
[2017-08-28 05:24] LABS: CALCIUM, SERUM 10.6 mg/dL (8.5-10.1); MAGNESIUM 2.6 mg/dL (1.8-2.4); PHOSPHORUS 5.1 mg/dL (2.5-4.9); POTASSIUM 4.9 mmol/L (3.5-5.1)
[2017-08-28 05:31] LABS: CREATININE 8.1 mg/dL (0.6-1.3)
--- NOTE | 2017-08-28 05:56 | NUR ---
RECEIVED CRITICAL LAB VALUE PLT 28, TRENDING UP FROM PREVIOUS VALUE OF 27. NO S/S OF BLEEDING NOTED. WILL RELY TO AM NURSE.
--- NOTE | 2017-08-28 07:19 | NUR ---
COOK FAST FOOD CLOSING NOTES NO SIGNIFICANT CHANGES OVERNIGHT. NO RESPIRATORY DISTRESS NOTED, ON 3LPMO2 VIA NC, SPO2 98-100% THROUGH THE NIGHT. SKIN WARM AND DRY TO TOUCH. ON TELE MONITOR SR WITH BBB, OCC VPACING. HERMAN PICC LINE PATENT AND INTACT, TKO. KEPT CLEAN AND DRY. TURNED AND REPOSITIONED Q2 AND PRN. WOUND TX PROVIDED. GT ON LOW INTERMITTENT SUCTION, WITH 100ML OF LIGHT BROWN OUTPUT. HOB ELEVATED. SIDE RAILS UP AND LOCKED. BED KEPT AT LOWEST POSITION. CALL LIGHT KEPT WITHIN EASY REACH. CONTINUITY OF CARE ENDORSED TO AM NURSE.
[2017-08-28] MEDS: LEVOTHYROXINE SODIUM 75 MCG TABLET GT SCH (07:30)
--- NOTE | 2017-08-28 07:30 | NUR ---
ICU/RN: Pt received in bed, on O2 3L/min via NC, breathing even and unlabored, drowsy, mumbles, responds to name. Pt HOB elevated, no abd distention notedm with hypoactive bowel sounds. GT set to low intermittent suction with green and sometimes coffee ground drainage. HERMAN PICC flushed patent, with one port with resistance to flushing. Alarm sounds audible. Will cont to monitor pt.
--- NOTE | 2017-08-28 07:47 | NUR ---
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 RECOMMENDATIONS MADE FOR SKIN PROTECTION AND WOUND CARE. DISCUSSED WITH NURSING STAFF. RECOMMEND SURGICAL CONSULT. PT ON FIRST STEP MATTRESS. ALL SKIN PROTECTION MEASURES IN PLACE. CURRENT COTY SCORE IS 13. WILL SEE PRN. HARRIS IN AGREEMENT WITH PLAN OF CARE. Addendum: 08/28/17 at 0750 by VINEET THOMAS WNDNU Amended: Links added.
[2017-08-28] MEDS ORDERED: HYDROGEL DRESSING 90 GM TUBE TP PRN (08:00)
[2017-08-28] MEDS: ASPIRIN 81 MG TAB.CHEW GT SCH (08:07)
[2017-08-28] MEDS: CLOPIDOGREL BISULFATE 75 MG TABLET GT SCH (08:08)
[2017-08-28] MEDS: FOLIC ACID 1 MG TABLET GT SCH (08:08)
[2017-08-28] MEDS: SEVELAMER CARBONATE 0.8 GM POWD.PACK GT SCH ×3 (08:08→16:21)
[2017-08-28] MEDS: HYDROGEL DRESSING 90 GM TUBE TP SCH ×2 (08:09→08:11)
[2017-08-28] MEDS: Z GUARD REMEDY 2 OZ OINT TP SCH ×2 (08:10→21:14)
--- NOTE | 2017-08-28 11:00 | NUR ---
ICU/RN: Pt off HD; 800cc out. Pt started on Levophed due to SBP in in low 80's and titrated up to 5mcg to maintain SBP >90mmHg> Dr Guevara at bedside and aware.
[2017-08-28] MEDS: ONDANSETRON HCL/PF 4 MG/2 ML VIAL IV PRN (11:22)
[2017-08-28] MEDS: EPOETIN ALFA (2000 UNIT) 2,000 UNIT/ML VIAL SQ SCH ×2 (14:40→14:41)
--- NOTE | 2017-08-28 15:15 | NUR ---
ICU/RN: Edyta Schreiber, STANDARDS ENGINEER rounds; CT order changed to CT Abd and Pelvis with contrast. Informed STANDARDS ENGINEER that pt already dialyzed today. Per STANDARDS ENGINEER, scan prior to HD.
--- NOTE | 2017-08-28 15:45 | NUR ---
ICU/RN: Maeve Padron, SCRAP BREAKER in for GI consult. Updated on pt status and aware of GT output. Informed SCRAP BREAKER of pending CT now requiring contrast, prefers CT done prior to HD. computed tomography scanner operator updated.
[2017-08-28] MEDS ORDERED: METOCLOPRAMIDE HCL 10 MG TABLET GT PRN (16:00)
--- NOTE | 2017-08-28 16:15 | NUR ---
ICU/RN: Wound care rendered; area cleansed, pat dry, applied Hydrogel and Mepilex. Small amount of soft brownish greenish stool noted, unable to collect enough specimen for stool OB.
[2017-08-28] MEDS: PANTOPRAZOLE 40 MG VIAL IV SCH (16:21)
[2017-08-28] MEDS: VANCOMYCIN 500 MG in IV D5W 100 ML IV PRN (17:55)
--- NOTE | 2017-08-28 18:46 | NUR ---
ICU/RN: CYNDY Gould for Dr Ribeiro at bedside for surgical consult; examined sacral wound. Updated on pt status. Awaiting orders.
--- NOTE | 2017-08-28 19:22 | NUR ---
ICU/RN: Pt in bed, drowsy, arousable by name and touch. SBP >90mmHg. GT set to LIS, with shift total of 350cc. Care endorsed to PM RN for CHAPO.
--- NOTE | 2017-08-28 19:44 | NUR ---
ICU/RN RECEIVED PT DROWSY,OPENS EYES TO STERNAL STIMULATION.SPEECH GARBLED.MONITOR SHOWS 100%V-PACED.REPOSITIONED
--- NOTE | 2017-08-28 21:00 | NUR ---
ICU/RN PT AWAKE AND STATES "I WANT TO GO HOME",INFORMED PT OF CONDITION AND TREATMENT AND NEED FOR STAY IN THE HOSPITAL.PT NODDED HEAD AND WENT TO SLEEP.
[2017-08-28] MEDS: DONEPEZIL 5 MG TABLET GT SCH (21:36)
[2017-08-28] MEDS: ATORVASTATIN 10 MG TABLET GT SCH (21:36)
[2017-08-28] MEDS: VITAMIN B COMP W-C 1 TAB TABLET GT SCH (21:38)
[2017-08-29] VITALS (37 sets, daily range): BP systolic 86–149; BP diastolic 44–98
[2017-08-29] MEDS: BLOOD SUGAR DIAGNOSTIC 1 EACH STRIP IN SCH ×4 (01:30→18:02)
--- NOTE | 2017-08-29 01:30 | NUR ---
ICU/RN KA=[id number].REG INSULIN NOT GIVEN PT NPO AND GT CONECTED TO LOW INTERMITTENT SUCTION
--- NOTE | 2017-08-29 03:16 | NUR ---
ICU/RN AWAKE ALERT,ORIENTED TO NAME AND PLACE,KEEPS SAYING "HELP" BUT WHEN ASKED WHAT KIND OF HELP PT NEEDS,NO ANSWER AND ASKED ABOUT [employer].PATIENT DENIES PAIN OR DISCOMFORT.RE-ORIENTED TO TIME ,PLACE AND SURROUNDINGS.
--- NOTE | 2017-08-29 04:10 | NUR ---
ICU/RN BLOOD SUGAR DRAWN BY SKZ=[id number].PT NPO AND GT TUBE REMAINS ON SUCTION.W/GREAT DIFFICULTY DRAWING BS FROM FINGER TIPS
[2017-08-29] MEDS: PIPERACILLIN /TAZOBACTAM 2.25 G in IV D5W 50 ML IV SCH ×3 (04:47→21:24)
[2017-08-29 04:59] LABS: BASOPHILS # (AUTO) 0.1 /CMM (0.0-0.2); BASOPHILS % (AUTO) 0.8 % (0.0-2.0); EOSINOPHILS # (AUTO) 0.4 /CMM (0.0-0.7); EOSINOPHILS % (AUTO) 2.2 % (0.0-6.0); HEMATOCRIT 29 % (39-51); HEMOGLOBIN 9.8 g/dL (13.5-17.5); LYMPHOCYTES # (AUTO) 1.2 /CMM (0.8-4.8); MEAN CORPUSCULAR HEMOGLOBIN 35 PG (26.0-33.0); MEAN CORPUSCULAR HGB CONC 34 g/dl (31.0-36.0); MEAN CORPUSCULAR VOLUME 103 fL (80-96); MONOCYTES # (AUTO) 1.1 /CMM (0.1-1.30); MONOCYTES % (AUTO) 6.4 % (2.0-12.0); NEUTROPHILS # (AUTO) 14.2 /CMM (1.8-8.9); NEUTROPHILS % (AUTO) 83.6 % (43.0-81.0); PLATELET COUNT (AUTO) 162 /CMM (150-450); RED BLOOD CELL COUNT(AUTO) 2.82 MIL/uL (4.5-6.0)
[2017-08-29 05:21] LABS: CALCIUM, SERUM 11.1 mg/dL (8.5-10.1); CREATININE 7.3 mg/dL (0.6-1.3); MAGNESIUM 2.7 mg/dL (1.8-2.4); PHOSPHORUS 6.3 mg/dL (2.5-4.9); POTASSIUM 4.6 mmol/L (3.5-5.1)
--- NOTE | 2017-08-29 07:41 | NUR ---
INITIAL HOMEMAKING REHABILITATION CONSULTANT NOTE RCVD PT AWAKE AND ALERT TO SELF, SHOWING NO S/O DISTRESS/PAIN. SR ON TELE WITH OCCASIONAL AV BLOCKS. TOLERATING O2 VIA NC. PEG TO LOW INTERMITTENT SUCTION GREEN DRAINAGE OBTAINED. HERMAN PICC C/D/I/PATENT. DRESSING CHANGED. JUANITO AV SHUNT BRUIT/DRILL PRESENT. WILL CONTINUE TO MONITOR PT FOR SAFETY AND COMFORT. CALL LIGHT WITHIN REACH. BED IN LOW AND LOCKED POSITION.
[2017-08-29] MEDS: CLOPIDOGREL BISULFATE 75 MG TABLET GT SCH (08:03)
[2017-08-29] MEDS: FOLIC ACID 1 MG TABLET GT SCH (08:03)
[2017-08-29] MEDS: LEVOTHYROXINE SODIUM 75 MCG TABLET GT SCH (08:03)
[2017-08-29] MEDS: HYDROGEL DRESSING 90 GM TUBE TP SCH (08:03)
[2017-08-29] MEDS: SEVELAMER CARBONATE 0.8 GM POWD.PACK GT SCH ×3 (08:03→16:36)
[2017-08-29] MEDS: ASPIRIN 81 MG TAB.CHEW GT SCH (08:04)
[2017-08-29] MEDS: Z GUARD REMEDY 2 OZ OINT TP SCH ×2 (08:04→21:25)
--- NOTE | 2017-08-29 08:47 | NUR ---
DONOR RECRUITMENT MANAGER NOTE PT TRANSPORTED PER PROTOCOL FOR CT ABD/PELVIS.
[2017-08-29] MEDS ORDERED: IV NS 0.9% 500 ML IV ONE (08:49)
[2017-08-29] MEDS ORDERED: CT SWABBABLE VALVE TRANS SET 1 EA INFUS.SET MC ONE (08:49)
[2017-08-29] MEDS ORDERED: IOHEXOL-300 100 ML VIAL IV ONE (08:49)
[2017-08-29] MEDS ORDERED: MINERAL OIL 133 ML (PYXIS) 1 EA ENEMA RC ONE (12:00)
--- NOTE | 2017-08-29 13:24 | NUR ---
TOUR OPERATOR NOTE DR. ZUNIGA AND LICHA, REHABILITATION PROGRAM COORDINATOR IN UNIT ASSESSING PT REVIEWED CT ABDOMEN/PELVIS. LICHA RECOMMENDED EGD FOR AM. PT'S SON CALLED TO GET CONSENT. HE WILL BE VISITING LATER TODAY. WILL F/U.
[2017-08-29] MEDS: RENAL NOVASOURCE 1,000 ML BOTTLE GT PRN (13:28)
[2017-08-29] MEDS: PANTOPRAZOLE 40 MG VIAL IV SCH (15:54)
[2017-08-29] MEDS: INSULIN REGULAR, HUMAN 100 UNIT/ML 3 ML VIAL SQ PRN (18:03)
--- NOTE | 2017-08-29 18:46 | NUR ---
LEAD SOFTWARE ARCHITECT NOTE PT TRANSFERRED TO [place] VIA BED PER PROTOCOL IN STABLE CONDITION. REPORT GIVEN OVER THE PHONE TO BANDAR ACE. PT WAS CONNECTED TO TELE BOX UPON ARRIVAL TO ROOM 114-1. PT'S BELONGINGS TRANSPORTED WITH PT. NO PERSONAL ITEMS LEFT BEHIND.
--- NOTE | 2017-08-29 18:54 | NUR ---
TD/wrapper caser Patient received from Katina (ICU nurse) Noted that picc line dressing to right upper arm was soaked in blood. Charge nurse Tonja made aware, said to leave dressing in place at this time so to not remove any clot that was forming. Will endorse to miguel rodriguez.
[2017-08-29] MEDS: IV NS 0.9% 1,000 ML IV PRN (21:13)
[2017-08-29] MEDS: DONEPEZIL 5 MG TABLET GT SCH (21:24)
[2017-08-29] MEDS: ATORVASTATIN 10 MG TABLET GT SCH (21:24)
[2017-08-29] MEDS: VITAMIN B COMP W-C 1 TAB TABLET GT SCH (21:24)
[2017-08-30] VITALS (8 sets, daily range): BP systolic 90–152; BP diastolic 53–83
[2017-08-30] MEDS: BLOOD SUGAR DIAGNOSTIC 1 EACH STRIP IN SCH ×4 (00:21→18:46)
[2017-08-30] MEDS: INSULIN REGULAR, HUMAN 100 UNIT/ML 3 ML VIAL SQ PRN ×2 (00:22→18:52)
[2017-08-30] MEDS: PIPERACILLIN /TAZOBACTAM 2.25 G in IV D5W 50 ML IV SCH ×3 (05:19→21:40)
--- NOTE | 2017-08-30 07:02 | NUR ---
RN NOTE RECEIVED PT IN NO ACUTE DISTRESS IN BED. PT DID NOT HAVE ANY SIGNIFICANT CHANGE IN CONDITION DURING SHIFT. ALL NEEDS MET, ALL ORDERS CARRIED OUT. PT HAD PICC LINE REMOVED AND MIDLINE INSERTED IN ITS PLACE. PT TOLERATED PROCEDURE WELL. WILL ENDORSE CARE TO AM RN FOR CONTINUITY OF CARE.
[2017-08-30 07:39] LABS: BASOPHILS # (AUTO) 0.1 /CMM (0.0-0.2); BASOPHILS % (AUTO) 0.9 % (0.0-2.0); EOSINOPHILS # (AUTO) 0.6 /CMM (0.0-0.7); EOSINOPHILS % (AUTO) 4.3 % (0.0-6.0); HEMATOCRIT 29 % (39-51); HEMOGLOBIN 9.8 g/dL (13.5-17.5); LYMPHOCYTES # (AUTO) 1.2 /CMM (0.8-4.8); LYMPHOCYTES % (AUTO) 9.1 % (20.0-44.0); MEAN CORPUSCULAR HEMOGLOBIN 34 PG (26.0-33.0); MEAN CORPUSCULAR HGB CONC 33 g/dl (31.0-36.0); MEAN CORPUSCULAR VOLUME 103 fL (80-96); MONOCYTES # (AUTO) 0.9 /CMM (0.1-1.30); NEUTROPHILS # (AUTO) 10.5 /CMM (1.8-8.9); NEUTROPHILS % (AUTO) 78.7 % (43.0-81.0); PLATELET COUNT (AUTO) 153 /CMM (150-450); RDW COEFFICIENT OF VARIATION 15.6 (11.5-15.0); RED BLOOD CELL COUNT(AUTO) 2.84 MIL/uL (4.5-6.0); WHITE BLOOD COUNT (AUTO) 13.4 K/uL (4.3-11.0)
[2017-08-30 08:00] LABS: CALCIUM, SERUM 10.2 mg/dL (8.5-10.1); INR 1.1 (0.87-1.13); MAGNESIUM 2.8 mg/dL (1.8-2.4); PHOSPHORUS 7.2 mg/dL (2.5-4.9); POTASSIUM 4.5 mmol/L (3.5-5.1)
[2017-08-30 08:01] LABS: CREATININE 8.7 mg/dL (0.6-1.3)
[2017-08-30] MEDS: LEVOTHYROXINE SODIUM 75 MCG TABLET GT SCH (08:20)
[2017-08-30] MEDS: ASPIRIN 81 MG TAB.CHEW GT SCH ×2 (09:00→10:49)
[2017-08-30] MEDS: CLOPIDOGREL BISULFATE 75 MG TABLET GT SCH ×2 (09:00→10:48)
[2017-08-30] MEDS: HYDROGEL DRESSING 90 GM TUBE TP SCH (09:29)
[2017-08-30] MEDS: Z GUARD REMEDY 2 OZ OINT TP SCH ×2 (09:29→21:40)
--- NOTE | 2017-08-30 09:45 | NUR ---
RN NOTE SPOKE WITH SECURITY COMPLIANCE ENGINEER LICHA CASTRO OVER THE PHONE REGARDING EGD TODAY. EGD TO BE SCHEDULED FOR TOMORROW SO IT IS OKAY TO FEED PT AND KEEP PT NPO POST MIDNIGHT 08/31/17 0000. WILL FOLLOW.
[2017-08-30] MEDS: FOLIC ACID 1 MG TABLET GT SCH (10:48)
[2017-08-30] MEDS: SEVELAMER CARBONATE 0.8 GM POWD.PACK GT SCH ×3 (10:50→16:10)
[2017-08-30] MEDS: EPOETIN ALFA (2000 UNIT) 2,000 UNIT/ML VIAL SQ SCH (13:00)
[2017-08-30] MEDS: RENAL NOVASOURCE 1,000 ML BOTTLE GT PRN (14:05)
[2017-08-30] MEDS: PANTOPRAZOLE 40 MG VIAL IV SCH (16:10)
[2017-08-30] MEDS ORDERED: PIPERACILLIN /TAZOBACTAM 2.25 G VIAL IV ONE (21:35)
[2017-08-30] MEDS: VITAMIN B COMP W-C 1 TAB TABLET GT SCH (21:41)
[2017-08-30] MEDS: ATORVASTATIN 10 MG TABLET GT SCH (21:41)
[2017-08-30] MEDS: DONEPEZIL 5 MG TABLET GT SCH (21:41)
[2017-08-31 04:00] VITALS: BP 125/78
[2017-08-31] MEDS ORDERED: PIPERACILLIN /TAZOBACTAM 2.25 G VIAL IV ONE (05:58)
[2017-08-31] MEDS: PIPERACILLIN /TAZOBACTAM 2.25 G in IV D5W 50 ML IV SCH ×2 (06:21→14:28)
[2017-08-31] MEDS: BLOOD SUGAR DIAGNOSTIC 1 EACH STRIP IN SCH ×5 (06:22→23:37)
[2017-08-31 07:05] LABS: BASOPHILS # (AUTO) 0.1 /CMM (0.0-0.2); BASOPHILS % (AUTO) 1.3 % (0.0-2.0); EOSINOPHILS # (AUTO) 0.5 /CMM (0.0-0.7); EOSINOPHILS % (AUTO) 5.1 % (0.0-6.0); HEMATOCRIT 28 % (39-51); HEMOGLOBIN 9.3 g/dL (13.5-17.5); LYMPHOCYTES # (AUTO) 1.5 /CMM (0.8-4.8); LYMPHOCYTES % (AUTO) 15.6 % (20.0-44.0); MEAN CORPUSCULAR HEMOGLOBIN 34 PG (26.0-33.0); MEAN CORPUSCULAR HGB CONC 33 g/dl (31.0-36.0); MEAN CORPUSCULAR VOLUME 103 fL (80-96); MONOCYTES # (AUTO) 0.8 /CMM (0.1-1.30); MONOCYTES % (AUTO) 8.3 % (2.0-12.0); NEUTROPHILS # (AUTO) 6.9 /CMM (1.8-8.9); NEUTROPHILS % (AUTO) 69.7 % (43.0-81.0); PLATELET COUNT (AUTO) 118 /CMM (150-450); RDW COEFFICIENT OF VARIATION 15.6 (11.5-15.0); RED BLOOD CELL COUNT(AUTO) 2.69 MIL/uL (4.5-6.0); WHITE BLOOD COUNT (AUTO) 9.8 K/uL (4.3-11.0)
[2017-08-31 07:11] LABS: CALCIUM, SERUM 9.5 mg/dL (8.5-10.1); CREATININE 7.1 mg/dL (0.6-1.3); MAGNESIUM 2.6 mg/dL (1.8-2.4); PHOSPHORUS 5.6 mg/dL (2.5-4.9); POTASSIUM 4.7 mmol/L (3.5-5.1)
--- NOTE | 2017-08-31 07:28 | NUR ---
RN NOTE RN RECEIVED PT IN NO ACUTE DISTRESS IN BED. PATIENT CLEAN DRY AT THIS TIME DIAPER IN PLACE MIDLINE CLEAN DRY AND INTACT. PT HAS SCHEDULED EGD TODAY CHECKLIST ENDORSED. RN WILL CONTINUE CARE THROUGHOUT THE DAY
[2017-08-31] MEDS: LEVOTHYROXINE SODIUM 75 MCG TABLET GT SCH (07:30)
[2017-08-31 08:00] VITALS: BP 131/78
--- NOTE | 2017-08-31 08:03 | NUR ---
RN NOTE PT REMAINS IN NO ACUTE DISTRESS IN BED. PT DID NOT HAVE ANY SIGNIFICANT CHANGE IN CONDITION DURING SHIFT. ALL NEEDS MET, ALL ORDERS CARRIED OUT. WILL ENDORSE CARE TO AM RN FOR CONTINUITY OF CARE.
[2017-08-31] MEDS: ASPIRIN 81 MG TAB.CHEW GT SCH (08:20)
[2017-08-31] MEDS: CLOPIDOGREL BISULFATE 75 MG TABLET GT SCH (08:20)
[2017-08-31] MEDS: FOLIC ACID 1 MG TABLET GT SCH (08:20)
[2017-08-31] MEDS: HYDROGEL DRESSING 90 GM TUBE TP SCH (08:21)
[2017-08-31] MEDS: Z GUARD REMEDY 2 OZ OINT TP SCH ×2 (08:21→20:50)
[2017-08-31] MEDS: SEVELAMER CARBONATE 0.8 GM POWD.PACK GT SCH ×3 (08:21→18:24)
[2017-08-31] MEDS ORDERED: PIPE2.254 IV (11:41)
[2017-08-31] MEDS ORDERED: VANC1PLA9 IV (11:41)
--- NOTE | 2017-08-31 14:37 | NUR ---
RN NOTE RN CONTACTED JAYESH BLANCAS IN REGARDS TO READMITTING THE PATIENT BACK TO TO [facility] ADMITTING RN STATES THAT THE PATIENT HASN'T BEEN APPROVED FOR ADMISSION AUTHOR EXECUTIVE TEAM LEADER NOTIFIED ABOUT THIS, RN WILL CONTINUE TO FOLLOW
--- NOTE | 2017-08-31 17:13 | NUR ---
RN NOTE RN SPOKE WITH VEGETABLE GROWER IN REGARDS TO THE PATIENT BEING DISCHARGED, TO [facility] PER PATIENT SON , PATIENT SON CONTACT INFORMATION GIVEN TO JESSICA TO CONTACT SONS NAME IS ANDREA PATRICK PATIENT CAME TO [facility] [place] FROM [facility]
--- NOTE | 2017-08-31 18:15 | NUR ---
RN NOTE PATIENT IN STABLE CONDITION AT THIS TIME ALL NEEDS ATTENDED PATIENT PICTURES TAKEN AND PLACED IN CHART PENDING POSSIBLE TELECOMMUNICATION SYSTEMS DESIGNER AWAITING RETURN CALL VIA CASE MANAGEMENT, PATIENT IN STABLE CONDITION THROUGHOUT THE DAY NO SOB NOTED EGD COMPLETED , FEEDINGS AND MEDICATION RESUMED PATIENT STABLE NO NAUSEA OR VOMITING NOTED
[2017-08-31] MEDS: PANTOPRAZOLE 40 MG VIAL IV SCH (18:24)
[2017-08-31] MEDS: RENAL NOVASOURCE 1,000 ML BOTTLE GT PRN (18:25)
[2017-08-31 20:00] VITALS: BP 138/54
--- NOTE | 2017-08-31 20:00 | NUR ---
RN NOTES RECEIVED PT. AWAKE ON BED, A/OX1, ON G-TUBE FEEDING , NOVASOURCE RUNNING @ 30ML/HR, NO RESIDUAL NOTED, PT. IS TOLERATING FAIRLY, CALL LIG WITHIN REACH, SDIERAILS UPX2, CONTINUE TO MONITOR
[2017-08-31] MEDS: PIPERACILLIN /TAZOBACTAM 2.25 G in IV NS 0.9% 50 ML IV SCH (20:45)
[2017-08-31 21:14] VITALS: BP 138/54
[2017-08-31] MEDS: VITAMIN B COMP W-C 1 TAB TABLET GT SCH (22:15)
[2017-08-31] MEDS: DONEPEZIL 5 MG TABLET GT SCH (22:16)
[2017-08-31] MEDS: ATORVASTATIN 10 MG TABLET GT SCH (22:16)
[2017-09-01 04:45] VITALS: BP 133/80
[2017-09-01] MEDS: BLOOD SUGAR DIAGNOSTIC 1 EACH STRIP IN SCH ×2 (05:06→11:38)
[2017-09-01] MEDS: PIPERACILLIN /TAZOBACTAM 2.25 G in IV NS 0.9% 50 ML IV SCH ×2 (05:06→13:25)
[2017-09-01] MEDS: INSULIN REGULAR, HUMAN 100 UNIT/ML 3 ML VIAL SQ PRN (06:06)
--- NOTE | 2017-09-01 06:40 | NUR ---
RN NOTES AWAKE, MORNING CARE RENDERED, G-TUBE FEEDING RUNNING, NO RESIDUAL NOTED, DENIES PAIN, NO SOB, CALL LIGHT WITHIN REACH, SIDERAILSUPX2, PT. NEEDS ATTENDED
[2017-09-01 08:00] VITALS: BP 98/54
[2017-09-01] MEDS: ASPIRIN 81 MG TAB.CHEW GT SCH (09:00)
[2017-09-01] MEDS: LEVOTHYROXINE SODIUM 75 MCG TABLET GT SCH (10:09)
[2017-09-01] MEDS: FOLIC ACID 1 MG TABLET GT SCH (10:10)
[2017-09-01] MEDS: CLOPIDOGREL BISULFATE 75 MG TABLET GT SCH (10:10)
[2017-09-01] MEDS: SEVELAMER CARBONATE 0.8 GM POWD.PACK GT SCH ×2 (10:10→13:25)
[2017-09-01] MEDS: HYDROGEL DRESSING 90 GM TUBE TP SCH (10:20)
[2017-09-01] MEDS: Z GUARD REMEDY 2 OZ OINT TP SCH (10:20)
[2017-09-01] MEDS: EPOETIN ALFA (2000 UNIT) 2,000 UNIT/ML VIAL SQ SCH (13:45)
[2017-09-01] MEDS: PANTOPRAZOLE 40 MG VIAL IV SCH (14:44)
--- NOTE | 2017-09-01 15:00 | NUR ---
Patient was supposed to get d/c yesterday to [facility], but report given by RN yesterday to [facility] and the facility had refused. Son had came in to see his dad, since yesterday he went to [facility] thinking his father would be discharged to [facility]. Report wasn't called by nurse yesterday, but in report the night nurse stated that the major case detective needed to be notified about where the patient was supposed to be discharged. Report was given to CAT Hernández at [facility] to assume care of patient. Patient was discharged via gurney with ambulance. Report given to ambulance personnel.
[2017-09-24] MEDS ORDERED: CYANOCOBALAMIN 1,000 MCG/ML VIAL IM SCH (09:00)
== END 2017-09-01 15:19 | DRG 871 ==
LOC: ER 12:58 → ICU 15:47 → TELE-TD 08-29 18:27 → MEDSG1 08-30 10:25
PROVIDERS: ADMIT Nurse Practitioner Acute Care; ATTEND Nurse Practitioner Acute Care
PROC: 02HV33Z Insertion of Infusion Device into Superior Vena Cava, Percutaneous Approach (ICD-10-PCS; 2017-08-25)
PROC: B548ZZA Ultrasonography of Superior Vena Cava, Guidance (ICD-10-PCS; 2017-08-25)
PROC: 5A1D70Z Performance of Urinary Filtration, Intermittent, Less than 6 Hours Per Day (ICD-10-PCS; 2017-08-26)
PROC: 5A1D70Z Performance of Urinary Filtration, Intermittent, Less than 6 Hours Per Day (ICD-10-PCS; 2017-08-27)
PROC: 5A1D70Z Performance of Urinary Filtration, Intermittent, Less than 6 Hours Per Day (ICD-10-PCS; 2017-08-28)
PROC: 05H633Z Insertion of Infusion Device into Left Subclavian Vein, Percutaneous Approach (ICD-10-PCS; 2017-08-30)
PROC: B547ZZA Ultrasonography of Left Subclavian Vein, Guidance (ICD-10-PCS; 2017-08-30)
PROC: 5A1D70Z Performance of Urinary Filtration, Intermittent, Less than 6 Hours Per Day (ICD-10-PCS; 2017-08-30)
PROC: 0DD98ZX Extraction of Duodenum, Via Natural or Artificial Opening Endoscopic, Diagnostic (ICD-10-PCS; 2017-08-31)
PROC: 0DD68ZX Extraction of Stomach, Via Natural or Artificial Opening Endoscopic, Diagnostic (ICD-10-PCS; 2017-08-31)
PROC: 0DD58ZX Extraction of Esophagus, Via Natural or Artificial Opening Endoscopic, Diagnostic (ICD-10-PCS; principal; 2017-08-31 09:10)
PROC: 5A1D70Z Performance of Urinary Filtration, Intermittent, Less than 6 Hours Per Day (ICD-10-PCS; 2017-09-01)
DX: A41.9 Sepsis, unspecified organism (principal); I21.A1 Myocardial infarction type 2; J96.90 Respiratory failure, unspecified, unspecified whether with hypoxia or hypercapnia; J69.0 Pneumonitis due to inhalation of food and vomit; G93.1 Anoxic brain damage, not elsewhere classified; R65.21 Severe sepsis with septic shock; R57.1 Hypovolemic shock; G93.41 Metabolic encephalopathy; R13.10 Dysphagia, unspecified; N18.6 End stage renal disease; I12.0 Hypertensive chronic kidney disease with stage 5 chronic kidney disease or end stage renal disease; M84.48XA Pathological fracture, other site, initial encounter for fracture; E11.22 Type 2 diabetes mellitus with diabetic chronic kidney disease; I12.9 Hypertensive chronic kidney disease with stage 1 through stage 4 chronic kidney disease, or unspecified chronic kidney disease; D63.8 Anemia in other chronic diseases classified elsewhere; E03.9 Hypothyroidism, unspecified; E78.5 Hyperlipidemia, unspecified; Z99.2 Dependence on renal dialysis; Z93.1 Gastrostomy status; F29 Unspecified psychosis not due to a substance or known physiological condition; Z88.5 Allergy status to narcotic agent; Z79.4 Long term (current) use of insulin; Z79.82 Long term (current) use of aspirin; Z79.899 Other long term (current) drug therapy; Z99.3 Dependence on wheelchair; Z95.1 Presence of aortocoronary bypass graft; Z86.73 Personal history of transient ischemic attack (TIA), and cerebral infarction without residual deficits; Z82.49 Family history of ischemic heart disease and other diseases of the circulatory system; Z74.01 Bed confinement status; K80.20 Calculus of gallbladder without cholecystitis without obstruction; K59.00 Constipation, unspecified; I65.29 Occlusion and stenosis of unspecified carotid artery; M85.9 Disorder of bone density and structure, unspecified; L98.419 Non-pressure chronic ulcer of buttock with unspecified severity; F03.90 Unspecified dementia, unspecified severity, without behavioral disturbance, psychotic disturbance, mood disturbance, and anxiety; I25.10 Atherosclerotic heart disease of native coronary artery without angina pectoris; I25.2 Old myocardial infarction; I48.91 Unspecified atrial fibrillation; K22.70 Barrett's esophagus without dysplasia; K29.70 Gastritis, unspecified, without bleeding; K29.80 Duodenitis without bleeding; K44.9 Diaphragmatic hernia without obstruction or gangrene; K40.90 Unilateral inguinal hernia, without obstruction or gangrene, not specified as recurrent; E87.5 Hyperkalemia; E83.52 Hypercalcemia; E66.01 Morbid (severe) obesity due to excess calories; Z68.26 Body mass index [BMI] 26.0-26.9, adult
CPT/HCPCS: 36415; 36569; 70450-TC; 71045-TC; 74018; 80048-TC; 80061-TC; 80076-TC; 80202-TC; 82272-TC; 82728-TC; 82962-TC; 83540-TC; 83605-TC; 83735-TC; 83970; 84100-TC; 84439-TC; 84443-TC; 84484-TC; 85025-TC; 85610-TC; 85730-TC; 86850-TC; 87040-TC; 87081-TC; 88305-TC; 88313-TC; 88342; 90935-TC; 93307-TC; A4216; A4606; A6248; A6402; C1751; C9113; J0885; J2405; J2543; J3370; J7030; J7040; J7050; J7060; J8597; P9047; Q9963; Q9967; Z7610